=== PATIENT | male | born 2000 | race Caucasian/White ===

== ENCOUNTER 2018-08-14 20:42 | Emergency (ER) | payer BC ==
--- NOTE | 2018-08-14 22:26 | ER Report ---
History and Physical Time Seen By MD: 22:26 Hx. of Stated Complaint: PT CUT LEFT INDEX FINGER ON KNIFE. HPI/ROS CHIEF COMPLAINT: Laceration HISTORY OF PRESENT ILLNESS: This is a 17-year-old male presents to the emergency department for laceration. Patient was using a knife, lacerated his left index finger approximately 2 hours prior to arrival. Bleeding is controlled, flexion- extension intact. CMS intact. REVIEW OF SYSTEMS: Respiratory: No cough, no dyspnea. Cardiovascular: No chest pain, no palpitations. Gastrointestinal: No vomiting, no abdominal pain. Musculoskeletal: No back pain. Integumentary: As above. Allergies: Coded Allergies: No Known Drug Allergies (Unverified , 08/14/18) Past Medical/Surgical History Patient has a past medical and surgical history of murmur, lung problems in high school, spinal fusion, scoliosis, arm and ankle fracture. Meningitis as a child. Reviewed Nurses Notes: Yes Constitutional Vital Sign - Last 24 Hours 08/14/18 22:10 Temp 98.2 Pulse 78 Resp 16 B/P (MAP) 144/84 Pulse Ox 96 O2 Delivery Room Air Physical Exam General Appearance: The patient is alert, has no immediate need for airway protection and no current signs of toxicity. Eyes: Pupils equal and round no injection. Respiratory: Chest is non tender, lungs are clear to auscultation. Cardiac: regular rate and rhythm. Gastrointestinal: Abdomen is soft and non tender, no masses, bowel sounds normal. Musculoskeletal: Neck: Neck is supple and non tender. Extremities have full range of motion and are non tender. Skin: 2cm laceration to the back of the left index finger over the PIP joint. DIFFERENTIAL DIAGNOSIS: After history and physical exam differential diagnosis was considered for laceration. Medical Decision Making ED Course/Re-evaluation ED Course The patient was admitted to room. A history and physical were obtained. Differential diagnoses were considered. The wound was anesthetized, cleansed and repaired as noted below, patient tolerated well. His tetanus was updated. A dressing and splint was applied, he will follow-up with the [facility] student health services next week for reevaluation. Monitor for signs of infection return to ER for any other concerns, patient resting understanding and was discharged home. Procedure: Laceration repair. Verbal consent was obtained from the patient. The 2 cm laceration on the back of the left index finger over the PIP was anesthetized in the usual fashion. The wound was scrubbed, draped and explored to its base with a gloved finger. There were no deep structures involved. No tendon injury was identified. The wound was repaired with 6, 5-0 Prolene simple interrupted sutures. The wound repair was simple. The procedure was performed by myself. Decision to Disposition Date: Aug 14, 2018 Decision to Disposition Time: 22:51 Depart Departure Latest Vital Signs Vital Signs Date Time Temp Pulse Resp B/P (MAP) Pulse Ox O2 Delivery O2 Flow Rate FiO2 08/14/18 22:10 98.2 78 16 144/84 96 Room Air Impression: Primary Impression: Laceration of left index finger Condition: Improved Disposition: HOME OR SELF-CARE Referrals: [facility] Patient Instructions: Finger Laceration (ED) Additional Instructions: Keep wound dry for 48 hours. Follow up with your primary care provider in the next 7 days to have sutures removed. Monitor for signs of infection; redness, swelling, heat, discharge, increasing pain or red streaking. Take Tylenol or Ibuprofen as needed for pain. Return to the ER with any concerns. You may change dressing as needed. Problem Qualifiers Primary Impression: Laceration of left index finger Encounter type: initial encounter Damage to nail status: without damage Foreign body presence: without foreign body Qualified Codes: S61.211A - Laceration without foreign body of left index finger without damage to nail, initial encounter JAVIER [id number] Aug 14, 2018 22:26
[2018-08-14] MEDS ORDERED: DIPHTH/TETANUS/ACEL. PERTUSSIS IM ONLY ONE (22:30)
[2018-08-14 23:05] VITALS: BP 118/74
== END 2018-08-14 23:05 | disposition home or self-care (01) ==
LOC: ER 22:23
DX: S61.211A Laceration without foreign body of left index finger without damage to nail, initial encounter (principal); W26.0XXA Contact with knife, initial encounter
CPT/HCPCS: 90471; 90715; 99283